=== PATIENT | male | born 1950 | race Caucasian/White ===

== ENCOUNTER → 2021-04-10 | Outpatient (CLI) | payer MEDICARE ==
--- NOTE | 2021-04-10 12:13 | FL ---
Modified barium swallow. HISTORY: Dysphagia. Modified barium swallow was performed with the department of speech pathology. The patient was prese nted with various consistencies of barium. There is no evidence for aspiration .Mild transient penetration. Full report is to follow from the de partment of speech pathology. Impression: There is no evidence for aspiration .
== END | disposition home or self-care (01) ==
LOC: EEVIPCON 10:00 → RADUSWWP 10:08
PROVIDERS: ATTEND Family Medicine
DX: R13.10 Dysphagia, unspecified (principal)
CPT/HCPCS: 74230